=== PATIENT | male | born 1965 ===

== ENCOUNTER 2016-12-27 08:47 | Observation (INO) | payer OTHER ==
[2016-12-27 08:53] VITALS: BMI 34.4
[2016-12-27] MEDS ORDERED: diaZEpam 10 mg/2 ml Inj IVP ONE (09:17)
--- NOTE | 2016-12-27 09:21 | ED PDOC ---
Arrival/HPI - General Chief Complaint: Back Pain Time Seen by Provider: 12/27/16 09:03 Historian: Patient, Spouse - History of Present Illness Narrative History of Present Illness (Text): 12/27/16 09:04 A 51 year old male, whose past medical history includes "sciatica", presents to the emergency department complaining of acute lower back pain that worsened after lifting something at work yesterday. Pain persistent, mid back, worse with any movements. He has sensation of difficulty lifting his legs and states he feels as if his "legs give out". No falls or trauma reported. Patient states for the past month he has had some weakness to the bilateral hands with pain. He also feels he has had increased neck pain over the past week after having "chronic" neck pain for several months. No fever, no trauma. No incontinence of urine or stool. Reports "spasms" to his upper legs at time. PMD: None 12/27/16 15:36 Time/Duration: Other (month) Symptom Onset: Sudden Symptom Course: Unchanged Quality: Other Activities at Onset: Significant Context: Home Past Medical History - Provider Review Nursing Documentation Reviewed: Yes - Infectious Disease Hx of Infectious Diseases: None - Tetanus Immunization Tetanus Immunization: Unknown - Past Medical History Past Medical History: No Previous - Cardiac Hx Cardiac Disorders: No Other/Comment: NO MED HX - Pulmonary Hx Respiratory Disorders: Yes Hx Pneumonia: Yes - Neurological Hx Neurological Disorder: No - HEENT Hx HEENT Disorder: No - Renal Hx Renal Disorder: No - Endocrine/Metabolic Hx Endocrine Disorders: No - Hematological/Oncological Hx Blood Disorders: No - Integumentary Hx Dermatological Disorder: No - Musculoskeletal/Rheumatological Hx Musculoskeletal Disorders: No - Gastrointestinal Hx Gastrointestinal Disorders: No - Genitourinary/Gynecological Hx Genitourinary Disorders: No - Psychiatric Hx Psychophysiologic Disorder: No Hx Substance Use: No - Past Surgical History Past Surgical History: No Previous - Suicidal Assessment Feels Threatened In Home Enviroment: No Family/Social History - Physician Review Nursing Documentation Reviewed: Yes Family/Social History: Unknown Family HX Smoking Status: Current Some Days Smoker Hx Alcohol Use: Yes Hx Substance Use: No Hx Substance Use Treatment: No Allergies/Home Meds Allergies/Adverse Reactions: Allergies No Known Allergies Allergy (Verified 08/23/13 14:40) Review of Systems - Review of Systems Constitutional: Fatigue. absent: Fevers Eyes: absent: Vision Changes, Eye Pain ENT: absent: Hearing Changes, Sore Throat, Rhinorrhea Respiratory: absent: SOB Cardiovascular: Chest Pain. absent: Edema, Calf Pain, VASQUEZ Gastrointestinal: absent: Abdominal Pain, Stool Changes Genitourinary Male: absent: Dysuria, Frequency, Hematuria, Urinary Output Changes Musculoskeletal: Back Pain, Neck Pain Skin: absent: Rash Neurological: Headache, Focal Weakness, Gait Changes. absent: Dizziness Endocrine: absent: Polyuria Psychiatric: absent: Depression Physical Exam - Physical Exam Narrative Physical Exam (Text): Head: Atraumatic. Normocephalic. Eyes: PERRL. EOMI. Conjunctivae are not pale. ENT: Mucous membranes are moist and intact. Oropharynx is clear and symmetric. There is soft tissue swelling angle of right jaw, no pus or drainage. Neck: Midline tenderness, paraspinal tenderness with muscle spasm, able to flex and extend and rotate neck with minimal discomfort and no restrictions. Cardiovascular: Regular rate. Regular rhythm. No murmurs, rubs, or gallops. Distal pulses are 2+ and symmetric. Pulmonary/Chest: No evidence of respiratory distress. Clear to auscultation bilaterally. No wheezing, rales or rhonchi. No palpable chest wall pain. Abdominal: Soft and non-distended. There is no tenderness. No rebound, guarding, or rigidity. No organomegaly. Good bowel sounds. Back: No CVA tenderness. Midline lumbar pain with paraspina tenderness, no erythema or edema, pain with straight leg testing in both lower extremeties at 45 degrees, no rash. Extremities: No edema. No cyanosis. No clubbing. Full range of motion in all extremities. No calf tenderness. Some muscle spasm noted to upper thighs. Skin: Skin is warm and dry. No petechiae. No purpura. Neurological: Alert, awake, and oriented to person, place, time, and situation. Normal speech. No slurred speech. Weak grasp to both hands, but no pronator drift noted in upper extremities, has full strength with flexion and extension at elbow and wrist, he has reported weakness when attempting to lift both legs off of bed but he is able to do so, NO SADDLE ANESTHESIA, no incontinence, there is good strength with plantar and dorsiflexion in both ankles, as well as flexion and extension at knee, reflexes symmetric and intact Psychiatric: Good eye contact. Normal interaction, affect, and behavior. Vital Signs Reviewed: Yes Vital Signs Temp Pulse Resp BP Pulse Ox 12/27/16 13:30 65 18 138/69 99 12/27/16 12:00 64 17 142/70 99 12/27/16 11:01 64 18 144/68 96 12/27/16 08:47 98.4 F 61 18 146/73 96 Temperature: Afebrile Blood Pressure: Normal Pulse: Regular Respiratory Rate: Normal Appearance: Positive for: Non-Toxic, Uncomfortable Pain Distress: Severe Mental Status: Positive for: Alert and Oriented X 3 Medical Decision Making ED Course and Treatment: 12/27/16 09:04 Impression/Plan: A 51 year old male with midline cervical and lumbar pain. Based on history and physical examination I suspect patient has multiple herniated disc in the cervical and lumbar region. Will order a MRI of the cervical and lumbar region given sensation of weakness and "legs giving out". On initial exam there is no saddle anesthesia, not hyperreflexive, no incontinence reported. He has difficulty lifting legs up off stretcher although difficulty to assess whether this is truly from motor deficits or from pain. Will give patient toradol and valium for the discomfort, reassess paitent. Differential Diagnosis include but are not limited to: herniated disc, spinal cord injury, radiculopathy Prior Visits: Notes and results from previous visits were reviewed. The patient last presented to the emergency department on 10/29/15 for evaluation of a laceration to the left second finger. Patient will be placed in ED observation for serial neuro exams and pain management, obtain MRI. Treatment plan reviewed with patient and who assists with translation. Risks/side effects of medication reviewed with patient. - Lab Interpretations Lab Results: 12/27/16 10:10 12/27/16 10:10 Lab Results 12/27/16 10:14: Urine Color Yellow, Urine Appearance Clear, Urine pH 6.0, Ur Specific [place] >= 1.030, Urine Protein Trace H, Urine Glucose (UA) Negative, Urine Ketones Negative, Urine Blood Negative, Urine Nitrate Negative, Urine Bilirubin Negative, Urine Urobilinogen 1.0 H, Ur Leukocyte Esterase Negative, Urine RBC 0 - 2, Urine WBC 0 - 2, Ur Epithelial Cells 0 - 2, Urine Bacteria Few 12/27/16 10:10: PT 10.5, INR 0.97, APTT 25.2 12/27/16 10:10: Sodium 140, Potassium 3.9, Chloride 106, Carbon Dioxide 24, Anion Gap 14, BUN 25 H, Creatinine 0.9, Est GFR ( Amer) > 60, Est GFR ( Non-Af Amer) > 60, Random Glucose 91, Calcium 9.3, Total Bilirubin 0.8, AST 27, ALT 48, Alkaline Phosphatase 44, Lactate Dehydrogenase 451, Total Creatine Kinase 385 H, CK-MB (CK-2) 0.9, CK-MB (CK-2) % Cancelled, Troponin I < 0.01, Total Protein 7.0, Albumin 4.2, Globulin 2.7, Albumin/Globulin Ratio 1.6 12/27/16 10:10: WBC 6.3, RBC 5.15, Hgb 15.5, Hct 44.6, MCV 86.6, MCH 30.1, MCHC 34.8, RDW 13.2, Plt Count 194, MPV 10.2, Gran % 45.1 L, Lymph % (Auto) 41.6 H, [place] % (Auto) 8.0 H, Eos % (Auto) 4.5, Baso % (Auto) 0.8, Gran # 2.82, Lymph # 2.6, [place] # 0.5, Eos # 0.3, Baso # 0.05 I have reviewed the lab results: Yes - RAD Interpretation Radiology Orders: 12/27/16 09:17 CHEST PORTABLE [RAD] Stat 12/27/16 09:18 SPINAL CANAL CERVICAL W/O CONT [MRI] Stat SPINAL CANAL LUMBAR W/O CONT [MRI] Stat - Medication Orders Current Medication Orders: Discontinued Medications Dexamethasone (Decadron Inj) 8 mg IVP STAT STA Stop: 12/27/16 09:27 Last Admin: 12/27/16 09:45 Dose: 8 mg Diazepam (Valium) 2.5 mg IVP ONCE ONE PRN Reason: Protocol Stop: 12/27/16 09:18 Last Admin: 12/27/16 09:33 Dose: 2.5 mg Ketorolac Tromethamine (Toradol) 30 mg IVP ONCE ONE Stop: 12/27/16 09:18 Last Admin: 12/27/16 09:33 Dose: 30 mg Morphine Sulfate (Morphine) 4 mg IVP STAT STA Stop: 12/27/16 11:59 Last Admin: 12/27/16 12:06 Dose: 4 mg ED OBSERVATION Date of observation admission: 12/27/16 Time of observation admission: 09:05 - Observation admission statement Patient is being placed in observation because:: intractable back pain - Goals of Observation Goals of observation are:: pain management, series of neurological examination and obtain MRI - Progress Note Progress Note: 12/27/16 10:28 Chest X-ray: Creator : Remington Schmidt MD COMPARISON: 02/02/2014. FINDINGS: LUNGS: No active pulmonary disease. PLEURA: No significant pleural effusion identified, no pneumothorax apparent. CARDIOVASCULAR: Normal. OSSEOUS STRUCTURES: No significant abnormalities. VISUALIZED UPPER ABDOMEN: Normal. OTHER FINDINGS: None. IMPRESSION: No active disease. No significant interval change compared to the prior examination(s). 12/27/16 11:30 On reevaluation, the patient notes some improvement in discomfort with medication but still in severe pain. 12/27/16 13:15 Cervical Spine: Creator : Rich Santiago MD COMPARISON: None FINDINGS: There is preservation cervical doses. Two bodies appear intact without acute fracture. There is multilevel disc desiccation and disc bulging with a right paracentral disc herniation at C6-7 with encroachment upon the right ventral margin the cord. No significant foraminal stenosis or spinal stenosis is observed. There is no abnormal cord signal. No gross prevertebral or paraspinal soft tissue abnormality is observed. IMPRESSION: Right paracentral disc herniation at C6-7 with encroachment upon the right ventral margin the cord. 12/27/16 13:25 Lumbar Spine: Creator : Rich Santiago MD COMPARISON: None available. FINDINGS: Normal lumbar lordosis. Vertebral body heights are preserved. Marrow signal unremarkable. Conus medullaris unremarkable at the level of T12/L1. Paraspinal soft tissues are unremarkable. T12-L1: No disc herniation, spinal canal stenosis or neural foraminal narrowing. L1-2: No disc herniation, spinal canal stenosis or neural foraminal narrowing. L2-3: No disc herniation, spinal canal stenosis or neural foraminal narrowing. L3-4: No disc herniation, spinal canal stenosis or neural foraminal narrowing. L4-5: Disc bulge with thecal sac indentation. L5-S1: Grade 1 anterolisthesis with bilateral spondylolysis and bilateral inferior foraminal encroachment. OTHER FINDINGS: None. IMPRESSION: L4-5: Disc bulge with thecal sac indentation. L5-S1: Grade 1 anterolisthesis with bilateral spondylolysis and bilateral inferior foraminal encroachment. 12/27/16 14:16 MRI findings reviewed with patient and . He is still in severe pain however no motor or sensory deficits noted. Persistent pain despite multiple boluses of iv pain medication. Plan to admit for intractable back pain for observation, neurology consultation. - Scribe Statement The provider has reviewed the documentation as recorded by the Scribe Maurice Esteban Provider Scribe Attestation: All medical record entries made by the Scribe were at my direction and personally dictated by me. I have reviewed the chart and agree that the record accurately reflects my personal performance of the history, physical exam, medical decision making, and the department course for this patient. I have also personally directed, reviewed, and agree with the discharge instructions and disposition. Disposition/Present on Arrival - Present on Arrival Any Indicators Present on Arrival: No History of DVT/PE: No History of Uncontrolled Diabetes: No Urinary Catheter: No History of Decub. Ulcer: No History Surgical Site Infection Following: None - Disposition Have Diagnosis and Disposition been Completed?: Yes Diagnosis: Intractable back pain, Cervical disc herniation, Lumbar disc herniation Disposition: HOSPITALIZED Disposition Time: 09:05 Patient Plan: Admission, Observation Patient Problems: Current Active Problems Problem Status Onset Cervical disc herniation Acute Intractable back pain Acute Lumbar disc herniation Acute Condition: FAIR
[2016-12-27] MEDS ORDERED: Dexamethasone 4 mg/1 ml IVP STA (09:26)
[2016-12-27 10:11] LABS: ADD MANUAL DIFF? NO
[2016-12-27 10:20] LABS: URINE BILIRUBIN NEGATIVE (NEGATIVE); URINE BLOOD NEGATIVE (NEGATIVE); URINE GLUCOSE (UA) NEGATIVE (NEGATIVE); URINE KETONE NEGATIVE (NEGATIVE); URINE LEUKOCYTE ESTERASE NEGATIVE Leu/uL (NEGATIVE); URINE PROTEIN TRACE mg/dL (<30 mg/dL)
[2016-12-27 10:20] LABS: BASO # 0.05 K/mm3 (0.0-2.0); BASO % 0.8 % (0.0-3.0); EOS # 0.3 (0.0-0.7); EOS % 4.5 % (1.5-5.0); GRAN # 2.82 (1.4-6.5); GRAN % 45.1 % (50.0-68.0); HEMATOCRIT 44.6 % (42.0-52.0); LYMPH # 2.6 (1.2-3.4); LYMPH % 41.6 % (22.0-35.0); MEAN CELL VOLUME 86.6 fL (80.0-105.0); MEAN CORPUSCULAR HEMOGLOBIN 30.1 pg (25.0-35.0); MEAN CORPUSCULAR HGB CONC 34.8 g/dl (31.0-37.0); MEAN PLATELET VOLUME 10.2 fl (7.0-11.0); MONO # 0.5 (0.1-0.6); PLATELET COUNT 194 10^3/uL (120.0-450.0); RED CELL DISTRIBUTION WIDTH 13.2 % (11.5-14.5); WHITE BLOOD COUNT 6.3 10^3/ul (4.5-11.0)
[2016-12-27 10:22] LABS: URINE APPEARANCE CLEAR (CLEAR); URINE COLOR YELLOW (YELLOW)
--- NOTE | 2016-12-27 10:27 | RAD ---
HISTORY: chest pain COMPARISON: 02/02/2014. FINDINGS: LUNGS: No active pulmonary disease. PLEURA: No significant pleural effusion identified, no pneumothorax apparent. CARDIOVASCULAR: Normal. OSSEOUS STRUCTURES: No significant abnormalities. VISUALIZED UPPER ABDOMEN: Normal. OTHER FINDINGS: None. IMPRESSION: No active disease. No significant interval change compared to the prior examination(s).
[2016-12-27 10:28] LABS: ALB/GLOB RATIO 1.6 (1.1-1.8); ALKALINE PHOSPHATASE 44 U/L (38-133); ALT/SGPT 48 U/L (7-56); AST/SGOT 27 U/L (15-59); BILIRUBIN,TOTAL 0.8 mg/dL (0.2-1.3); BLOOD UREA NITROGEN 25 mg/dL (7-21); CALCIUM 9.3 mg/dL (8.4-10.5); CARBON DIOXIDE 24 mmol/L (21-33); CHLORIDE 106 mmol/L (98-107); GFR AFRICAN-AMERICAN > 60; GLUCOSE,RANDOM 91 mg/dL (70-110); POTASSIUM 3.9 mmol/L (3.6-5.0); SODIUM 140 mmol/L (132-148)
[2016-12-27 10:30] LABS: INR 0.97 (0.93-1.08); PARTIAL THROMBOPLASTIN TIME 25.2 Seconds (23.7-30.8)
[2016-12-27 10:40] LABS: TROPONIN I < 0.01 ng/mL
[2016-12-27 10:52] LABS: URINE BACTERIA FEW (NEG); URINE EPITHELIAL CELLS 0 - 2 /hpf (0-5); URINE RBC 0 - 2 /hpf (0-2); URINE WBC 0 - 2 /hpf (0-6)
[2016-12-27] MEDS ORDERED: Morphine 2 mg/ml ISec IVP STA (11:58)
--- NOTE | 2016-12-27 13:13 | MRI ---
PROCEDURE: HISTORY: neck pain, arm weakness COMPARISON: None TECHNIQUE: Noncontrast FINDINGS: There is preservation cervical doses. Two bodies appear intact without acute fracture. There is multilevel disc desiccation and disc bulging with a right paracentral disc herniation at C6-7 with encroachment upon the right ventral margin the cord. No significant foraminal stenosis or spinal stenosis is observed. There is no abnormal cord signal. No gross prevertebral or paraspinal soft tissue abnormality is observed. IMPRESSION: Right paracentral disc herniation at C6-7 with encroachment upon the right ventral margin the cord.
--- NOTE | 2016-12-27 13:26 | MRI ---
PROCEDURE: MR LUMBAR SPINE WITHOUT CONTRAST HISTORY: low back pain with leg weakness COMPARISON: None available. TECHNIQUE: Multiecho multiplanar sequences were performed through the lumbar spine without the use of intravenous contrast. FINDINGS: Normal lumbar lordosis. Vertebral body heights are preserved. Marrow signal unremarkable. Conus medullaris unremarkable at the level of T12/L1 Paraspinal soft tissues are unremarkable. T12-L1: No disc herniation, spinal canal stenosis or neural foraminal narrowing. L1-2: No disc herniation, spinal canal stenosis or neural foraminal narrowing. L2-3: No disc herniation, spinal canal stenosis or neural foraminal narrowing. L3-4: No disc herniation, spinal canal stenosis or neural foraminal narrowing. L4-5: Disc bulge with thecal sac indentation. L5-S1: Grade 1 anterolisthesis with bilateral spondylolysis and bilateral inferior foraminal encroachment. OTHER FINDINGS: None. IMPRESSION: L4-5: Disc bulge with thecal sac indentation. L5-S1: Grade 1 anterolisthesis with bilateral spondylolysis and bilateral inferior foraminal encroachment.
--- NOTE | 2016-12-27 18:26 | CP.PCM.HP ---
<Denys Crowell - Last Filed: 12/27/16 18:11> History of Present Illness - History of Present Illness History of Present Illness: HPI: Patient is a 51yo male with past medical history of sciatica that [place] [facility] [place]o low back pain. 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 He reported that he immediately had an acute decrease in the muscle strength of both of his legs. He felt as though his legs were giving out. He reported his low back pain has been persistent despite taking ibuprofen and exacerbates with movement. He reported that he was able to drive home but after no improvement with rest, he decided to come in for evaluation. Patient also reported cervical pain that has been present for the past 4 weeks. He stated that when he was lifting the heavy object he felt tingling in bilateral upper extremities. He denied saddle anesthesia, bowel/bladder incontinence, trauma, chest pain, palpitations, SOB, abdominal pain, nausea, vomiting, fever, chills, cough. 12point ROS as per HPI above, otherwise negative PMHx: Sciatica PSHx: denies Allergies: denies Medications: denies Family Hx: Father: CAD, Sciatica, [place], HTN, HCL; Mother: DM2, HTN Social Hx: Denies alcohol and illicit drug use; lives with his PMD: none Present on Admission - Present on Admission Any Indicators Present on Admission: No Past Patient History - Infectious Disease Hx of Infectious Diseases: None - Tetanus Immunizations Tetanus Immunization: Unknown - Past Social History Smoking Status: Current Some Days Smoker - CARDIAC Hx Cardiac Disorders: No Other/Comment: NO MED HX - PULMONARY Hx Respiratory Disorders: Yes Hx Pneumonia: Yes - NEUROLOGICAL Hx Neurological Disorder: No - HEENT Hx HEENT Problems: No - RENAL Hx Chronic Kidney Disease: No - ENDOCRINE/METABOLIC Hx Endocrine Disorders: No - HEMATOLOGICAL/ONCOLOGICAL Hx Blood Disorders: No - INTEGUMENTARY Hx Dermatological Problems: No - MUSCULOSKELETAL/RHEUMATOLOGICAL Hx Musculoskeletal Disorders: No - GASTROINTESTINAL Hx Gastrointestinal Disorders: No - GENITOURINARY/GYNECOLOGICAL Hx Genitourinary Disorders: No - PSYCHIATRIC Hx Psychophysiologic Disorder: No Hx Substance Use: No - SURGICAL HISTORY Hx Surgeries: No Meds Allergies/Adverse Reactions: Allergies Allergy/AdvReac Type Severity Reaction Status Date / Time No Known Allergies Allergy Verified 12/27/16 19:23 Physical Exam - Head Exam Head Exam: ATRAUMATIC, NORMAL INSPECTION, NORMOCEPHALIC - Eye Exam Eye Exam: EOMI, PERRL - ENT Exam ENT Exam: Mucous Membranes Moist - Respiratory Exam Respiratory Exam: Clear to Auscultation Bilateral. absent: Rales, Rhonchi, Wheezes - Cardiovascular Exam Cardiovascular Exam: RRR, +S1, +S2. absent: Gallop, Rubs - GI/Abdominal Exam GI & Abdominal Exam: Soft. absent: Distended, Firm, Guarding, Rebound, Tenderness - Extremities Exam Additional comments: muscle strength 3/5 in bilateral lower extremities muscle strength 3/5 in bilateral upper extremities - Back Exam Additional comments: tenderness to palptation at C6-C7 tenderness to palptation at ~L4-L5 and L5-S1 - Neurological Exam Neurological exam: Alert, CN II-XII Intact, Oriented x3 Additional comments: sensation intact throughout EOMI, PERRLA CN2-12 intact - Skin Skin Exam: Dry, Intact, Normal Color, Warm Results - Vital Signs Recent Vital Signs: Last Vital Signs Temp 98.4 F 12/27/16 08:47 Pulse 66 12/27/16 15:36 Resp 18 12/27/16 15:36 BP 135/65 12/27/16 15:36 Pulse Ox 99 12/27/16 15:36 - Labs Result Diagrams: 12/27/16 10:10 12/27/16 10:10 Assessment & Plan - Assessment and Plan (Free Text) Plan: 51yo male with history of sciatica presents c/o acute low back pain for one day prior to presentation -Cervical MRI revealed right paracentral disc herniation at C6-C7 with encroachment upon the right ventral margin of the cord -Lumbar MRI revealed disk bulge with thecal sac indentation at L4-L5, grade 1 anterolisthesis with bilateral spondylolysis and bilateral inferior foraminal encroachment at L5-S1 -Thoracic MRI ordered -Gapanetin 600mg qHS, decadron 4mg q6h per neurology recommendations -Neurology consulted - Dr. Laureano; Discussed case and orders placed per recommendations provided -Neurosurgery consulted - Dr. Steele -Neurochecks q1h for 4 hours, followed by q4h -Patient placed on remote telemetry for possibility of tachycardia secondary to decadron administration per neurology recommendations Patient seen and case discussed in conjuction with attending, Dr. Goodwin - Date & Time Date: 12/27/16 Time: 18:29 <Francine Goodwin - Last Filed: 12/27/16 19:55> Results - Vital Signs Recent Vital Signs: Last Vital Signs Temp 98.4 F 12/27/16 08:47 Pulse 66 12/27/16 15:36 Resp 18 12/27/16 15:36 BP 135/65 12/27/16 15:36 Pulse Ox 99 12/27/16 15:36 - Labs Result Diagrams: 12/27/16 10:10 12/27/16 10:10 Attending/Attestation - Attestation I have personally seen and examined this patient.: Yes I have fully participated in the care of the patient.: Yes I have reviewed all pertinent clinical information: Yes Notes (Text): 12/27/16 19:49 Pt has low back pain and spasm of muscles of the lower extremities,is unable to stand or walk normally. Pt to be considered for PT after Neurosurgical evaluation.
[2016-12-27] MEDS: Morphine 2 mg/ml ISec IVP PRN (19:21)
[2016-12-27] MEDS: Dexamethasone 4 mg/1 ml IVP SCH (19:22)
[2016-12-27] MEDS ORDERED: Pneumococcal 23-Valent Vaccine IM ONE (21:54)
[2016-12-28] MEDS: Dexamethasone 4 mg/1 ml IVP SCH ×5 (00:47→22:15)
[2016-12-28 07:47] LABS: ADD MANUAL DIFF? NO
[2016-12-28 07:55] LABS: GRAN # 6.72 (1.4-6.5); GRAN % 82.2 % (50.0-68.0); HEMATOCRIT 41.9 % (42.0-52.0); LYMPH # 1.3 (1.2-3.4); LYMPH % 15.5 % (22.0-35.0); MEAN CELL VOLUME 85.7 fL (80.0-105.0); MEAN CORPUSCULAR HEMOGLOBIN 29.9 pg (25.0-35.0); MEAN CORPUSCULAR HGB CONC 34.8 g/dl (31.0-37.0); MONO # 0.2 (0.1-0.6); MONO % 2.3 % (1.0-6.0); PLATELET COUNT 201 10^3/uL (120.0-450.0); WHITE BLOOD COUNT 8.2 10^3/ul (4.5-11.0)
[2016-12-28 08:09] LABS: ALB/GLOB RATIO 1.7 (1.1-1.8); ALKALINE PHOSPHATASE 39 U/L (38-133); ALT/SGPT 45 U/L (7-56); AST/SGOT 20 U/L (15-59); BILIRUBIN,TOTAL 0.5 mg/dL (0.2-1.3); BLOOD UREA NITROGEN 20 mg/dL (7-21); CARBON DIOXIDE 20 mmol/L (21-33); CHLORIDE 105 mmol/L (95-110); GFR AFRICAN-AMERICAN > 60; GLUCOSE,RANDOM 130 mg/dL (70-110); POTASSIUM 4.8 mmol/L (3.6-5.0); SODIUM 135 mmol/L (132-148); TOTAL PROTEIN 6.6 g/dL (5.8-8.3)
[2016-12-28] MEDS: Morphine 2 mg/ml ISec IVP PRN (09:46)
--- NOTE | 2016-12-28 09:54 | CARD ---
APPROVED REPORT EKG Measurement Heart [id number] <Conclusion> Sinus bradycardia No change except slower rate
--- NOTE | 2016-12-28 10:44 | CP.PCM.PN ---
Subjective - Date & Time of Evaluation Date of Evaluation: 12/28/16 Time of Evaluation: 10:42 - Subjective Subjective: full consult dictated L5/S1 spondylolisthesis - Pt considering conservative vs operative Tx will order CT Objective - Vital Signs/Intake and Output Vital Signs (last 24 hours): Temp Pulse Resp BP Pulse Ox 98.4 F 56 L 18 135/65 96 12/27/16 21:32 12/28/16 10:00 12/27/16 21:32 12/27/16 21:32 12/27/16 18:00 Intake and Output: 12/28/16 12/28/16 06:59 18:59 Intake Total 420 Balance 420 - Medications Medications: Current Medications Dexamethasone (Decadron Inj) 4 mg IVP Q6H JOHNATHON Last Admin: 12/28/16 05:43 Dose: 4 mg Gabapentin (Neurontin) 600 mg PO HS JOHNATHON PRN Reason: Protocol Last Admin: 12/27/16 23:02 Dose: 600 mg Morphine Sulfate (Morphine) 2 mg IVP Q6H PRN PRN Reason: Pain, severe (8-10) Last Admin: 12/28/16 09:46 Dose: 2 mg - Labs Labs: 12/28/16 07:11 12/28/16 07:11 PT 10.5 Seconds (9.9-11.8) 12/27/16 10:10 INR 0.97 (0.93-1.08) 12/27/16 10:10 APTT 25.2 Seconds (23.7-30.8) 12/27/16 10:10
[2016-12-28] MEDS ORDERED: HYDROmorphone 0.5 mg/0.5 ml ISec IVP PRN (11:38)
--- NOTE | 2016-12-28 11:42 | CP.PCM.PN ---
<Sander Christiansen - Last Filed: 12/28/16 11:43> Subjective - Date & Time of Evaluation Date of Evaluation: 12/28/16 Time of Evaluation: 11:40 - Subjective Subjective: Medicine progress note. Attending: Dr. Guillen Pt seen and examined at bedside. No acute distress. Neurosurgery evaluation pending. No fevers, chills. Pt still complaining of weakness in arms, but sensation intact. Will add ESR, ELIU. Objective - Vital Signs/Intake and Output Vital Signs (last 24 hours): Temp Pulse Resp BP Pulse Ox 98.4 F 56 L 17 109/67 92 L 12/28/16 06:00 12/28/16 10:00 12/28/16 06:00 12/28/16 06:00 12/28/16 06:00 Intake and Output: 12/28/16 12/28/16 06:59 18:59 Intake Total 420 Balance 420 - Medications Medications: Current Medications Dexamethasone (Decadron Inj) 4 mg IVP Q6H JOHNATHON Last Admin: 12/28/16 11:07 Dose: 4 mg Gabapentin (Neurontin) 600 mg PO HS JOHNATHON PRN Reason: Protocol Last Admin: 12/27/16 23:02 Dose: 600 mg Hydromorphone HCl (Dilaudid) 1 mg IVP Q4H PRN PRN Reason: Pain, severe (8-10) Lidocaine (Lidoderm) 1 ea TD DAILY JOHNATHON - Labs Labs: 12/28/16 07:11 12/28/16 07:11 PT 10.5 Seconds (9.9-11.8) 12/27/16 10:10 INR 0.97 (0.93-1.08) 12/27/16 10:10 APTT 25.2 Seconds (23.7-30.8) 12/27/16 10:10 - Constitutional Appears: Non-toxic, No Acute Distress - Head Exam Head Exam: ATRAUMATIC, NORMAL INSPECTION, NORMOCEPHALIC - Eye Exam Eye Exam: EOMI - ENT Exam ENT Exam: Mucous Membranes Moist - Neck Exam Neck Exam: Full ROM, Normal Inspection - Respiratory Exam Respiratory Exam: NORMAL BREATHING PATTERN. absent: Respiratory Distress - Cardiovascular Exam Cardiovascular Exam: +S1, +S2 - GI/Abdominal Exam GI & Abdominal Exam: Soft, Normal Bowel Sounds. absent: Tenderness - Extremities Exam Extremities Exam: Normal Inspection - Back Exam Back Exam: NORMAL INSPECTION - Neurological Exam Neurological Exam: Alert, Awake, Oriented x3 Additional comments: Sensation to pain and light touch intact. Able to follow complex commands. AO x 3. - Psychiatric Exam Psychiatric exam: Normal Affect, Normal Mood - Skin Skin Exam: Dry, Intact, Normal Color, Warm Assessment and Plan - Assessment and Plan (Free Text) Assessment: This is a 51 yo male with history of sciatica presenting with cc acute low back pain for one day prior to presentation 1. Low back pain -Cervical MRI revealed right paracentral disc herniation at C6-C7 with encroachment upon the right ventral margin of the cord -Lumbar MRI revealed disk bulge with thecal sac indentation at L4-L5, grade 1 anterolisthesis with bilateral spondylolysis and bilateral inferior foraminal encroachment at L5-S1 -Thoracic MRI ordered, results pending -Gapanetin 600mg qHS, decadron 4mg q6h per neurology recommendations -Neurology consulted - Dr. Laureano -Neurosurgery consulted - Dr. Steele, workup in progress. -Neurochecks q1h for 4 hours, followed by q4h -Patient placed on remote telemetry for possibility of tachycardia secondary to decadron administration per neurology recommendations -will add dilaudid for pain -will f/u esr, eliu -will add lidocaine patch to lumbar spine 2.GI/DVT ppx -protonix daily -SCDs discussed with Dr. Guillen <Sahra Guillen - Last Filed: 12/28/16 15:57> Objective - Vital Signs/Intake and Output Vital Signs (last 24 hours): Temp Pulse Resp BP Pulse Ox 98.4 F 56 L 17 109/67 92 L 12/28/16 06:00 12/28/16 10:00 12/28/16 06:00 12/28/16 06:00 12/28/16 06:00 Intake and Output: 12/28/16 12/28/16 06:59 18:59 Intake Total 420 360 Balance 420 360 - Medications Medications: Current Medications Dexamethasone (Decadron Inj) 4 mg IVP Q6H JOHNATHON Last Admin: 12/28/16 11:07 Dose: 4 mg Gabapentin (Neurontin) 600 mg PO HS JOHNATHON PRN Reason: Protocol Last Admin: 12/27/16 23:02 Dose: 600 mg Hydromorphone HCl (Dilaudid) 1 mg IVP Q4H PRN PRN Reason: Pain, severe (8-10) Lidocaine (Lidoderm) 1 ea TD DAILY JOHNATHON Last Admin: 12/28/16 12:47 Dose: 1 ea Pantoprazole Sodium (Protonix Inj) 40 mg IVP DAILY [facility] Last Admin: 12/28/16 12:47 Dose: 40 mg - Labs Labs: 12/28/16 07:11 12/28/16 07:11 PT 10.5 Seconds (9.9-11.8) 12/27/16 10:10 INR 0.97 (0.93-1.08) 12/27/16 10:10 APTT 25.2 Seconds (23.7-30.8) 12/27/16 10:10 Attending/Attestation - Attestation I have personally seen and examined this patient.: Yes I have fully participated in the care of the patient.: Yes I have reviewed all pertinent clinical information, including history, physical exam and plan: Yes Notes (Text): 12/28/16 15:54 Patient seen and examined at bedside. Vitals, notes and labs reviewed. Imaging results noted. patients pain is slightly better with analgesic support and steroids. Neuro-surgery consult appreciated and patient to decide between two therapeutic options. We will repeat CT Lumbar spine today. Neurology team consulted as well. Reviewed and agree with the plan outlined above.
[2016-12-28] MEDS: Lidocaine 5% Patch TD SCH (12:47)
--- NOTE | 2016-12-28 14:55 | CT ---
PROCEDURE: CT Lumbar Spine without contrast HISTORY: spondylolisthesis COMPARISON: None. TECHNIQUE: Axial computed tomography images were obtained of the lumbar spine without the use of intravenous contrast. Coronal and sagittal reformatted images were created and reviewed. Radiation dose: Total exam DLP = 0 swallow L1 I spoke to the technologist size and fine detailed the if you wanted with contrast [place] no problem with that there is no contraindication to lower select distal mGy-cm. This CT exam was performed using one or more of the following dose reduction techniques: Automated exposure control, adjustment of the mA and/or kV according to patient size, and/or use of iterative reconstruction technique. FINDINGS: VERTEBRAE: Unremarkable. No fracture. Normal alignment. DISCS/SPINAL CANAL/NEURAL FORAMINA: L1-2: Unremarkable. L2-3: Unremarkable. L3-4: Unremarkable. L4-5: Unremarkable. L5-S1: Grade 1 anterolisthesis with associated pars defects. PARASPINAL SOFT TISSUES: Unremarkable. OTHER FINDINGS: Diverticulosis without an acute inflammatory component or other associated pathologic process. IMPRESSION: Grade 1 anterolisthesis with associated spondylolysis L5-S1. Otherwise no significant/ acute findings.
--- NOTE | 2016-12-28 15:27 | MRI ---
PROCEDURE: MR THORACIC SPINE WITHOUT CONTRAST HISTORY: r/o compression COMPARISON: None available. TECHNIQUE: Multiecho multiplanar sequences were performed through the thoracic spine without the use of intravenous contrast. FINDINGS: ALIGNMENT: Normal thoracic spinal alignment. Normal thoracic kyphosis. VERTEBRA: Vertebral body height are preserved. MARROW: Marrow signal unremarkable. PARASPINAL SOFT TISSUES: Unremarkable. CORD: Unremarkable thoracic cord. No volume loss, signal abnormality or syrinx. DISCS: T5-6 right paracentral disc protrusion with mild central canal stenosis and encroachment upon the right ventral margin of the cord. T6-7 disc extrusion extending superiorly 1/3 of the vertebral body height resulting in mild central canal stenosis and mild flattening of the ventral margin of the cord. OTHER FINDINGS: Limited by absence of cervical spinal localizing sequence limiting anchored numbering of the thoracic bodies. Following thoracic levels are approximate.. IMPRESSION: Limited by absence of cervical spinal localizing sequence limiting anchored numbering of the thoracic bodies. Following thoracic levels are approximate.. T5-6 right paracentral disc protrusion with mild central canal stenosis and encroachment upon the right ventral margin of the cord. T6-7 disc extrusion extending superiorly 1/3 of the vertebral body height resulting in mild central canal stenosis and mild flattening of the ventral margin of the cord.
[2016-12-28] MEDS: HYDROmorphone 1 mg/ml ISec IVP PRN ×2 (17:37→22:16)
--- NOTE | 2016-12-28 20:16 | CON ---
DATE: 12/28/2016 CHIEF COMPLAINT: Back pain and neck pain. 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 He has had difficulty lifting his legs and paresthesias i n the legs, had mid low back pain radiating down the left buttocks down to the foot with paresthesias and weakness. No recent falls or trauma to the ____. He also mentions that he has weak payroll consultant in hi s hands and has neck pain radiating down both arms with paresthesias. No bowel or bladder incontinen ce. He underwent MRIs of the thoracic spine, which showed T5-T6 right paracentral disk protrusion, m ild central canal stenosis encroachment upon the right ventral margin of the cord and T6-T7 disk extr usion extending superiorly to 1/3 of vertebral body height, resulting in mild central canal stenosis and mild flattening of the ventral cord. He had MRI of the lumbosacral spine, which showed grade I a nterolisthesis with bilateral spondylosis and bilateral inferior foraminal encroachment at L4-L5 disk bulge with thecal sac indentation. MRI cervical spine showed a right paracentral disk herniation at C6-C7 with encroachment upon the right ventral margin of the cord, but no abnormal cord signal. Sta rted on Decadron 4 mg IV q. 6 for neuropathic pain and gabapentin 600 mg p.o. at bedtime for neuropat hic pain, which has helped. Neurosurgery evaluation has been done, awaiting their assessment for pos sible surgical intervention. Currently, the patient has weak payroll consultant on hands and decreased reflexes o n the brachioradialis and the biceps as well as the triceps bilaterally and has decreased reflexes at both bilateral patellars, has pain when raising both legs above 15 degrees. PAST MEDICAL HISTORY: History of low back pain. SOCIAL HISTORY: No illicit drug use, smoking, or ETOH abuse. FAMILY HISTORY: Noncontributory. ALLERGIES: No known drug allergies. CURRENT MEDICATIONS: Reviewed via nurses reconciliation sheet. FAMILY HISTORY: Noncontributory. PHYSICAL EXAMINATION: VITAL SIGNS: Temperature 98.2, pulse rate 76, blood pressure 124/66, respiratory rate of 18, oxygen 95% on room air. GENERAL: The patient is sitting up in bed in no acute distress. HEENT: Atraumatic, normocephalic. PERRLA. Extraocular muscles intact. NECK: Supple, no JVD, no adenopathy noted. LUNGS: Clear to auscultation. No adventitious sounds. HEART: S1, S2, normal rate and rhythm. No murmurs, rubs, or gallops. ABDOMEN: Soft, nontender, nondistended. Bowel sounds present. EXTREMITIES: No clubbing, no cyanosis. Peripheral pulses 2+ felt bilaterally. NEUROLOGIC: The patient is alert, oriented to person, place, month and year. Speech is fluent, with out any errors. Cranial nerves II through XII are intact. MOTOR: Moves all extremities equally, but when moving the lower legs, he gets pain down his low back and has decreased hand payroll consultant of both hands. DTRs are 2+ throughout except for 1 at both brachioradi refugio, 1 at biceps and 1 at the pelvis. Toes are downgoing bilaterally. SENSORY: Decreased light touch and pinprick, proprioception, vibration. COORDINATION: Doknbe-yo-rtdg intact. GAIT: Deferred for now. LABORATORIES: Sodium is 135, potassium 4.8, chloride 105, carbon dioxide 20, BUN of 20, creatinine 0 .8. Random glucose 130. ASSESSMENT AND PLAN: This is a 51-year-old man with history of low back pain, who has worsening low back pain radiating down the left buttocks, down the left leg associated with paresthesias, aggravate d by prolonged positions and with any sudden movements. His legs also give out at times. He also co mplains of neck pain radiating down both arms with some paresthesias as well and decreased hand payroll consultant strength. His MRI of the lumbosacral spine showed grade I anterolisthesis with bilateral spondylosi s, bilateral foraminal ____ , L4-L5 disk bulge with thecal sac indentation. MRI of thoracic spine sh owed T5-T6 right paracentral disk protrusion with mild central canal stenosis, encroachment upon the right ventral margin of the cord and C6-C7 extrusion extending superiorly 1/3 of vertebral body heigh t and resulting in mild central canal stenosis and flattening of the ventral margin cord. MRI C-spin e showing a right paracentral disk herniation at C6 with C7 encroachment upon the right ventral clark n of the cord but no abnormal cord signal. Overall impression is that he has acute lumbosacral radic ulopathy from L4-S1, superimposed underlying cervical radiculopathy, especially on the right C6-C7. AT THIS TIME, RECOMMEND: 1. Neurosurgical evaluation for both lumbosacral ____ as well as cervical intervention. 2. Continue Decadron 4 mg IV q. 6 hours for anti-inflammatory effect. Can taper down to p.o. if nec essary by pharmacy's recommendations. 3. Continue gabapentin 600 mg p.o. at bedtime for neuropathic pain and could add 300 mg p.o. q.a.m. if needed. 4. Physical and occupational therapy. Will probably need also some subacute rehabilitation. At this time, continue with current present management. Thank you for this consult. Bryson Laureano MD cc: [id number] TT: 12/28/2016 20:15:04 Confirmation # [id number] Dictation # [id number] sherif
[2016-12-29] MEDS: Dexamethasone 4 mg/1 ml IVP SCH ×2 (05:12→11:31)
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
[2016-12-29 08:38] VITALS: RESP 20; O2SAT 99
[2016-12-29 08:57] LABS: ADD MANUAL DIFF? NO
[2016-12-29] MEDS: HYDROmorphone 1 mg/ml ISec IVP PRN ×2 (08:58→14:10)
[2016-12-29] MEDS: Lidocaine 5% Patch TD SCH (09:03)
[2016-12-29 09:04] LABS: GRAN # 8.86 (1.4-6.5); GRAN % 82.9 % (50.0-68.0); HEMATOCRIT 40.6 % (42.0-52.0); LYMPH # 1.4 (1.2-3.4); LYMPH % 13.2 % (22.0-35.0); MEAN CELL VOLUME 86.4 fL (80.0-105.0); MEAN CORPUSCULAR HEMOGLOBIN 29.4 pg (25.0-35.0); MONO # 0.4 (0.1-0.6); MONO % 3.9 % (1.0-6.0); PLATELET COUNT 189 10^3/uL (120.0-450.0); WHITE BLOOD COUNT 10.7 10^3/ul (4.5-11.0)
[2016-12-29 09:17] LABS: ALB/GLOB RATIO 1.6 (1.1-1.8); ALKALINE PHOSPHATASE 33 U/L (38-133); ALT/SGPT 43 U/L (7-56); AST/SGOT 16 U/L (15-59); BILIRUBIN,TOTAL 0.4 mg/dL (0.2-1.3); BLOOD UREA NITROGEN 23 mg/dL (7-21); CALCIUM 8.8 mg/dL (8.4-10.5); CARBON DIOXIDE 21 mmol/L (21-33); CHLORIDE 105 mmol/L (98-107); GFR AFRICAN-AMERICAN > 60; GLUCOSE,RANDOM 120 mg/dL (70-110); MAGNESIUM 2.1 mg/dL (1.7-2.2); PHOSPHOROUS 3.1 mg/dL (2.5-4.5); POTASSIUM 4.4 mmol/L (3.6-5.0); SODIUM 133 mmol/L (132-148); TOTAL PROTEIN 6.3 g/dL (5.8-8.3)
--- NOTE | 2016-12-29 10:53 | CP.PCM.PN ---
<Sander Christiansen - Last Filed: 12/29/16 10:54> Subjective - Date & Time of Evaluation Date of Evaluation: 12/29/16 Time of Evaluation: 10:50 - Subjective Subjective: Med progress note. Attending: Dr. Kirk Pt seen and examined at bedside. No acute distress. Pt needing PT eval. Able to move to go to bathroom. No fevers, chills, vomiting, diarrhea. Objective - Vital Signs/Intake and Output Vital Signs (last 24 hours): Temp Pulse Resp BP Pulse Ox 97.9 F 54 L 20 114/67 99 12/29/16 08:36 12/29/16 08:36 12/29/16 08:36 12/29/16 08:36 12/29/16 08:36 Intake and Output: 12/29/16 12/29/16 06:59 18:59 Intake Total 1140 Balance 1140 - Medications Medications: Current Medications Dexamethasone (Decadron Inj) 4 mg IVP Q6H JOHNATHON Last Admin: 12/29/16 05:12 Dose: 4 mg Gabapentin (Neurontin) 600 mg PO HS JOHNATHON PRN Reason: Protocol Last Admin: 12/28/16 22:16 Dose: 600 mg Hydromorphone HCl (Dilaudid) 1 mg IVP Q4H PRN PRN Reason: Pain, severe (8-10) Last Admin: 12/29/16 08:58 Dose: 1 mg Lidocaine (Lidoderm) 1 ea TD DAILY JOHNATHON Last Admin: 12/29/16 09:03 Dose: 1 ea Pantoprazole Sodium (Protonix Inj) 40 mg IVP DAILY JOHNATHON Last Admin: 12/29/16 09:03 Dose: 40 mg - Labs Labs: 12/29/16 08:20 12/29/16 08:20 PT 10.5 Seconds (9.9-11.8) 12/27/16 10:10 INR 0.97 (0.93-1.08) 12/27/16 10:10 APTT 25.2 Seconds (23.7-30.8) 12/27/16 10:10 - Constitutional Appears: Non-toxic, No Acute Distress - Head Exam Head Exam: ATRAUMATIC, NORMOCEPHALIC. absent: NORMAL INSPECTION Additional comments: Positive dermoid cyst - Eye Exam Eye Exam: EOMI - ENT Exam ENT Exam: Mucous Membranes Moist - Neck Exam Neck Exam: Full ROM, Normal Inspection - Respiratory Exam Respiratory Exam: NORMAL BREATHING PATTERN. absent: Respiratory Distress - Cardiovascular Exam Cardiovascular Exam: +S1, +S2 - GI/Abdominal Exam GI & Abdominal Exam: Soft, Normal Bowel Sounds. absent: Tenderness - Extremities Exam Extremities Exam: Normal Inspection - Back Exam Back Exam: paraspinal tenderness, tenderness - Neurological Exam Neurological Exam: Alert, Awake, Oriented x3 Additional comments: Sensation intact to pain and light touch - Skin Skin Exam: Dry, Intact, Normal Color, Warm Assessment and Plan - Assessment and Plan (Free Text) Assessment: This is a 51 yo male with history of sciatica presenting with cc acute low back pain for one day prior to presentation 1. Low back pain -Cervical MRI revealed right paracentral disc herniation at C6-C7 with encroachment upon the right ventral margin of the cord -Lumbar MRI revealed disk bulge with thecal sac indentation at L4-L5, grade 1 anterolisthesis with bilateral spondylolysis and bilateral inferior foraminal encroachment at L5-S1 -Thoracic MRI ordered, results pending -Gapanetin 600mg qHS, decadron 4mg q6h per neurology recommendations -Neurology consulted - Dr. Laureano -Neurosurgery consulted - Dr. Steele, workup in progress. -Neurochecks -Patient placed on remote telemetry for possibility of tachycardia secondary to decadron administration per neurology recommendations -will add dilaudid for pain -will f/u esr, eliu -will add lidocaine patch to lumbar spine 2.GI/DVT ppx -protonix daily -SCDs -will f/u with PT evaluation discussed with Dr. Kirk. <Bartolome Kirk - Last Filed: 12/30/16 16:31> Objective - Vital Signs/Intake and Output Vital Signs (last 24 hours): Temp Pulse Resp BP Pulse Ox 97.8 F 64 20 131/75 99 12/29/16 18:00 12/29/16 18:00 12/29/16 18:00 12/29/16 18:00 12/29/16 08:36 - Labs Labs: 12/29/16 08:20 12/29/16 08:20 PT 10.5 Seconds (9.9-11.8) 12/27/16 10:10 INR 0.97 (0.93-1.08) 12/27/16 10:10 APTT 25.2 Seconds (23.7-30.8) 12/27/16 10:10 Attending/Attestation - Attestation I have personally seen and examined this patient.: Yes I have fully participated in the care of the patient.: Yes I have reviewed all pertinent clinical information, including history, physical exam and plan: Yes Notes (Text): 12/30/16 16:28 Attending note; Patient seen and examined with resident. Patient is a 51-year-old male admitted with back pain. Patient with significant cervical and lumbar radiculopathy. Neurosurgery evaluation appreciated. Patient refused Surgery for now. Physical therapy evaluation appreciated. Neurology evaluation with Dr. Laureano appreciated. Patient will be discharged home with Neurontin, Medrol Dosepak, Motrin and Percocet. Patient will complete [facility] care paperwork. Patient [place] [facility] [place] [facility] Patient will follow-up with neurosurgery Dr. Thornton. Diagnosis; Lumbar radiculopathy/disc herniation facet arthropathy History of back injury Cervical radiculopathy
--- NOTE | 2016-12-29 10:56 | CP.PCM.PN ---
Subjective - Date & Time of Evaluation Date of Evaluation: 12/29/16 Time of Evaluation: 10:52 - Subjective Subjective: SPINE Reviewed CT scan. Signif bilat pars defects at L5. Pt would absolutely benefit from L5-S1 decompression/fixation/fusion, but due to his work and family issues states it is impossible for him to have surgery at this time. Therefore would consider d/c (pt states he can amb to bathroom on own now) and we will f/u in office as pt wishes. Need to taper steroids. Discussed with Social Service as well so they can see pt. Objective - Vital Signs/Intake and Output Vital Signs (last 24 hours): Temp Pulse Resp BP Pulse Ox 97.9 F 54 L 20 114/67 99 12/29/16 08:36 12/29/16 08:36 12/29/16 08:36 12/29/16 08:36 12/29/16 08:36 Intake and Output: 12/29/16 12/29/16 06:59 18:59 Intake Total 1140 Balance 1140 - Medications Medications: Current Medications Dexamethasone (Decadron Inj) 4 mg IVP Q6H JOHNATHON Last Admin: 12/29/16 05:12 Dose: 4 mg Gabapentin (Neurontin) 600 mg PO HS JOHNATHON PRN Reason: Protocol Last Admin: 12/28/16 22:16 Dose: 600 mg Hydromorphone HCl (Dilaudid) 1 mg IVP Q4H PRN PRN Reason: Pain, severe (8-10) Last Admin: 12/29/16 08:58 Dose: 1 mg Lidocaine (Lidoderm) 1 ea TD DAILY JOHNATHON Last Admin: 12/29/16 09:03 Dose: 1 ea Pantoprazole Sodium (Protonix Inj) 40 mg IVP DAILY JOHNATHON Last Admin: 12/29/16 09:03 Dose: 40 mg - Labs Labs: 12/29/16 08:20 12/29/16 08:20 PT 10.5 Seconds (9.9-11.8) 12/27/16 10:10 INR 0.97 (0.93-1.08) 12/27/16 10:10 APTT 25.2 Seconds (23.7-30.8) 12/27/16 10:10
--- NOTE | 2016-12-29 13:07 | CP.PCM.PCO ---
Assessment & Plan - Assessment and Plan (Free Text) Assessment: NEURO COMMUNICATION NOTE: PATIENT HAS CERVICAL AND LUMBOSACRAL RADICULOPATHY. NEURO-SURGERY NOTE REVIEWED AND APPRECIATED. PATIENT DEFERS SURGERY TO OUTPATIENT. RECOMMEND: TAPER DOSE OF STEROIDS OR MEDROL DOSE PACK. C/W GABAPENTIN 600MG PO QHS AND 300MG PO QAM. PT/OT OUTPATIENT. F/U WITH NEUROSURGERY OUTPATIENT. THANK U, SIGN OFF. Lo HYLTON.
[2016-12-29 18:59] VITALS: BP 131/75; PULSE 64; TEMP 97.8
[2016-12-29] MEDS ORDERED: Dexamethasone 4 mg/1 ml IVP SCH (22:00)
--- NOTE | 2016-12-31 10:27 | CP.PCM.DIS ---
<Sander Christiansen - Last Filed: 12/31/16 10:36> Provider - Provider Date of Admission: 12/27/16 12:15 Attending physician: Bartolome Kirk MD Primary care physician: NO PRIMARY CARE PROVIDER Consults: Consults Neurology Sridevi Neurosurgery [facility] Time Spent in preparation of Discharge (in minutes): 45 Hospital Course - Lab Results Lab Results: Most Recent Lab Values WBC 10.7 10^3/ul (4.5-11.0) D 12/29/16 08:20 RBC 4.70 10^6/uL (3.5-6.1) 12/29/16 08:20 Hgb 13.8 gm/dL (14.0-18.0) L 12/29/16 08:20 Hct 40.6 % (42.0-52.0) L 12/29/16 08:20 MCV 86.4 fL (80.0-105.0) 12/29/16 08:20 MCH 29.4 pg (25.0-35.0) 12/29/16 08:20 MCHC 34.0 g/dl (31.0-37.0) 12/29/16 08:20 RDW 13.0 % (11.5-14.5) 12/29/16 08:20 Plt Count 189 10^3/uL (120.0-450.0) 12/29/16 08:20 MPV 10.0 fl (7.0-11.0) 12/29/16 08:20 Gran % 82.9 % (50.0-68.0) H 12/29/16 08:20 Lymph % (Auto) 13.2 % (22.0-35.0) L 12/29/16 08:20 [place] % (Auto) 3.9 % (1.0-6.0) 12/29/16 08:20 Eos % (Auto) 0.0 % (1.5-5.0) L 12/29/16 08:20 Baso % (Auto) 0.0 % (0.0-3.0) 12/29/16 08:20 Gran # 8.86 (1.4-6.5) H 12/29/16 08:20 Lymph # 1.4 (1.2-3.4) 12/29/16 08:20 [place] # 0.4 (0.1-0.6) 12/29/16 08:20 Eos # 0.0 (0.0-0.7) 12/29/16 08:20 Baso # 0.00 K/mm3 (0.0-2.0) 12/29/16 08:20 ESR 3 mm/hr (0.00-15.0) 12/28/16 07:11 PT 10.5 Seconds (9.9-11.8) 12/27/16 10:10 INR 0.97 (0.93-1.08) 12/27/16 10:10 APTT 25.2 Seconds (23.7-30.8) 12/27/16 10:10 Sodium 133 mmol/L (132-148) 12/29/16 08:20 Potassium 4.4 mmol/L (3.6-5.0) 12/29/16 08:20 Chloride 105 mmol/L (98-107) 12/29/16 08:20 Carbon Dioxide 21 mmol/L (21-33) 12/29/16 08:20 Anion Gap 11 (10-20) 12/29/16 08:20 BUN 23 mg/dL (7-21) H 12/29/16 08:20 Creatinine 0.8 mg/dL (0.5-1.4) 12/29/16 08:20 Est GFR ( Amer) > 60 12/29/16 08:20 Est GFR (Non-Af Amer) > 60 12/29/16 08:20 Random Glucose 120 mg/dL (70-110) H 12/29/16 08:20 Calcium 8.8 mg/dL (8.4-10.5) 12/29/16 08:20 Phosphorus 3.1 mg/dL (2.5-4.5) 12/29/16 08:20 Magnesium 2.1 mg/dL (1.7-2.2) 12/29/16 08:20 Total Bilirubin 0.4 mg/dL (0.2-1.3) 12/29/16 08:20 AST 16 U/L (15-59) 12/29/16 08:20 ALT 43 U/L (7-56) 12/29/16 08:20 Alkaline Phosphatase 33 U/L (38-133) L 12/29/16 08:20 Lactate Dehydrogenase 451 U/L (333-699) 12/27/16 10:10 Total Creatine Kinase 385 U/L (35-230) H 12/27/16 10:10 CK-MB (CK-2) 0.9 ng/mL (0.0-3.6) 12/27/16 10:10 CK-MB (CK-2) % Cancelled 12/27/16 10:10 Troponin I < 0.01 ng/mL 12/27/16 10:10 Total Protein 6.3 g/dL (5.8-8.3) 12/29/16 08:20 Albumin 3.9 g/dL (3.0-4.8) 12/29/16 08:20 Globulin 2.4 gm/dL 12/29/16 08:20 Albumin/Globulin Ratio 1.6 (1.1-1.8) 12/29/16 08:20 Urine Color Yellow (YELLOW) 12/27/16 10:14 Urine Appearance Clear (CLEAR) 12/27/16 10:14 Urine pH 6.0 (4.7-8.0) 12/27/16 10:14 Ur Specific [place] >= 1.030 (1.005-1.035) 12/27/16 10:14 Urine Protein Trace mg/dL (<30 mg/dL) H 12/27/16 10:14 Urine Glucose (UA) Negative mg/dL (NEGATIVE) 12/27/16 10:14 Urine Ketones Negative mg/dL (NEGATIVE) 12/27/16 10:14 Urine Blood Negative (NEGATIVE) 12/27/16 10:14 Urine Nitrate Negative (NEGATIVE) 12/27/16 10:14 Urine Bilirubin Negative (NEGATIVE) 12/27/16 10:14 Urine Urobilinogen 1.0 E.U./dL (<1 E.U./dL) H 12/27/16 10:14 Ur Leukocyte Esterase Negative Leydi/uL (NEGATIVE) 12/27/16 10:14 Urine RBC 0 - 2 /hpf (0-2) 12/27/16 10:14 Urine WBC 0 - 2 /hpf (0-6) 12/27/16 10:14 Ur Epithelial Cells 0 - 2 /hpf (0-5) 12/27/16 10:14 Urine Bacteria Few (NEG) 12/27/16 10:14 ELIU Screen Negative (Negative) 12/28/16 07:11 - Hospital Course Hospital Course: Attending: Dr. Kirk Admit date- 12/28 DC date- 12/29 Consults Neurology Sridevi Neurosurgery Ivette Discharge dx Cervical/lumbar radiculopathy Dermoid cyst Procedures- none No complications Stable for discharge. HPI: see h/p Labs: see lab data Hospital course Patient is a 51 year old male with past medical history of sciatica that presents to [facility] c/o low back pain. 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 He reported that he immediately had an acute decrease in the muscle strength of both of his legs. He felt as though his legs were giving out. He reported his low back pain has been persistent despite taking ibuprofen and exacerbates with movement. He reported that he was able to drive home but after no improvement with rest, he decided to come in for evaluation. Patient also reported cervical pain that has been present for the past 4 weeks. He stated that when he was lifting the heavy object he felt tingling in bilateral upper extremities. He denied saddle anesthesia, bowel/ bladder incontinence, trauma, chest pain, palpitations, SOB, abdominal pain, nausea, vomiting, fever, chills, cough. 1. Low back pain -Cervical MRI revealed right paracentral disc herniation at C6-C7 with encroachment upon the right ventral margin of the cord -Lumbar MRI revealed disk bulge with thecal sac indentation at L4-L5, grade 1 anterolisthesis with bilateral spondylolysis and bilateral inferior foraminal encroachment at L5-S1 -Thoracic MRI ordered>> shows disc herniation as well, please see full report -Gapanetin 600mg qHS, decadron 4mg q6h per neurology recommendations -Neurology consulted - Dr. Laureano -Neurosurgery consulted - Dr. Steele, workup in progress. -Neurochecks -Patient placed on remote telemetry for possibility of tachycardia secondary to decadron administration per neurology recommendations -will add dilaudid for pain -will f/u esr, eliu>>> ESR normal, eliu negative -will add lidocaine patch to lumbar spine 2.GI/DVT ppx -protonix daily -SCDs -will f/u with PT evaluation PT/OT rec as outpatient pt to be sent home with medrol dose pack and gabapentin will defer surgery for outpatient Discharge meds 1. gabapentin 600 mg po hs 2. gabapentin 300 mg po amhs 3. motrin 600 mg po q12 4. medrol dose pack 5. naproxen 50 mg po daily 6. percocet 5/325, number 15 7. protonix 40 mg po daily DC instructions Please return if condition worsens. Pt will need to f/u with neurosurgery for surgery as outpatient. Please take all meds as prescribed. Please f/u with primary care within one week. - Date & Time of H&P Date of H&P: 12/27/16 Time of H&P: 18:11 Discharge Exam - Head Exam Head Exam: ATRAUMATIC, NORMOCEPHALIC. absent: NORMAL INSPECTION Additional comments: Dermoid cyst - Eye Exam Eye Exam: EOMI - ENT Exam ENT Exam: Mucous Membranes Moist - Neck Exam Neck exam: Full Rom, Normal Inspection - Respiratory Exam Respiratory Exam: NORMAL BREATHING PATTERN, UNREMARKABLE - Cardiovascular Exam Cardiovascular Exam: +S1, +S2 - GI/Abdominal Exam GI & Abdominal Exam: Normal Bowel Sounds - Extremities Exam Extremities exam: full ROM, normal inspection - Neurological Exam Neurological exam: Alert, CN II-XII Intact, Oriented x3 - Psychiatric Exam Psychiatric exam: Normal Affect, Normal Mood - Skin Skin Exam: Dry, Intact, Normal Color, Warm Discharge Plan - Discharge Medications Prescriptions: Gabapentin 600 mg PO HS #30 tablet Gabapentin 300 mg PO AMHS #30 capsule Ibuprofen [Motrin] 600 mg PO Q12 #20 tab Methylprednisolone [Medrol Dose Pack (21 tabs)] 4 mg PO DAILY #21 mg oxyCODONE/Acetaminophen [Percocet 5/325 mg Tab] 1 ea PO Q4 #15 tab Pantoprazole Sodium [Protonix] 40 mg PO DAILY #10 ect - Follow Up Plan Condition: STABLE Disposition: HOME/ ROUTINE Instructions: Lumbar Disc Herniation (DC), Low Back Strain (DC), Cervical Disc Herniation (DC) Additional Instructions: If you experience any worsening of symptoms call your primary care physician and go to the nearest Emergency Room. 1. Follow up with [facility] clinic. Call to make appointment after completing [facility] paperwork. 2. Follow up with DR. Thornton neurosurgery. 3. Avoid lifting heavy objects. 4. Complete steroid course. Referrals: Gabo Thornton MD [Staff Provider] - PCP,NO [Primary Care Provider] - <Bartolome Kirk - Last Filed: 12/31/16 14:40> Provider - Provider Date of Admission: 12/27/16 12:15 Attending physician: Bartolome Kirk MD Primary care physician: TICO PRIMARY CARE PROVIDER Hospital Course - Lab Results Lab Results: Most Recent Lab Values WBC 10.7 10^3/ul (4.5-11.0) D 12/29/16 08:20 RBC 4.70 10^6/uL (3.5-6.1) 12/29/16 08:20 Hgb 13.8 gm/dL (14.0-18.0) L 12/29/16 08:20 Hct 40.6 % (42.0-52.0) L 12/29/16 08:20 MCV 86.4 fL (80.0-105.0) 12/29/16 08:20 MCH 29.4 pg (25.0-35.0) 12/29/16 08:20 MCHC 34.0 g/dl (31.0-37.0) 12/29/16 08:20 RDW 13.0 % (11.5-14.5) 12/29/16 08:20 Plt Count 189 10^3/uL (120.0-450.0) 12/29/16 08:20 MPV 10.0 fl (7.0-11.0) 12/29/16 08:20 Gran % 82.9 % (50.0-68.0) H 12/29/16 08:20 Lymph % (Auto) 13.2 % (22.0-35.0) L 12/29/16 08:20 [place] % (Auto) 3.9 % (1.0-6.0) 12/29/16 08:20 Eos % (Auto) 0.0 % (1.5-5.0) L 12/29/16 08:20 Baso % (Auto) 0.0 % (0.0-3.0) 12/29/16 08:20 Gran # 8.86 (1.4-6.5) H 12/29/16 08:20 Lymph # 1.4 (1.2-3.4) 12/29/16 08:20 [place] # 0.4 (0.1-0.6) 12/29/16 08:20 Eos # 0.0 (0.0-0.7) 12/29/16 08:20 Baso # 0.00 K/mm3 (0.0-2.0) 12/29/16 08:20 ESR 3 mm/hr (0.00-15.0) 12/28/16 07:11 PT 10.5 Seconds (9.9-11.8) 12/27/16 10:10 INR 0.97 (0.93-1.08) 12/27/16 10:10 APTT 25.2 Seconds (23.7-30.8) 12/27/16 10:10 Sodium 133 mmol/L (132-148) 12/29/16 08:20 Potassium 4.4 mmol/L (3.6-5.0) 12/29/16 08:20 Chloride 105 mmol/L (98-107) 12/29/16 08:20 Carbon Dioxide 21 mmol/L (21-33) 12/29/16 08:20 Anion Gap 11 (10-20) 12/29/16 08:20 BUN 23 mg/dL (7-21) H 12/29/16 08:20 Creatinine 0.8 mg/dL (0.5-1.4) 12/29/16 08:20 Est GFR ( Amer) > 60 12/29/16 08:20 Est GFR (Non-Af Amer) > 60 12/29/16 08:20 Random Glucose 120 mg/dL (70-110) H 12/29/16 08:20 Calcium 8.8 mg/dL (8.4-10.5) 12/29/16 08:20 Phosphorus 3.1 mg/dL (2.5-4.5) 12/29/16 08:20 Magnesium 2.1 mg/dL (1.7-2.2) 12/29/16 08:20 Total Bilirubin 0.4 mg/dL (0.2-1.3) 12/29/16 08:20 AST 16 U/L (15-59) 12/29/16 08:20 ALT 43 U/L (7-56) 12/29/16 08:20 Alkaline Phosphatase 33 U/L (38-133) L 12/29/16 08:20 Lactate Dehydrogenase 451 U/L (333-699) 12/27/16 10:10 Total Creatine Kinase 385 U/L (35-230) H 12/27/16 10:10 CK-MB (CK-2) 0.9 ng/mL (0.0-3.6) 12/27/16 10:10 CK-MB (CK-2) % Cancelled 12/27/16 10:10 Troponin I < 0.01 ng/mL 12/27/16 10:10 Total Protein 6.3 g/dL (5.8-8.3) 12/29/16 08:20 Albumin 3.9 g/dL (3.0-4.8) 12/29/16 08:20 Globulin 2.4 gm/dL 12/29/16 08:20 Albumin/Globulin Ratio 1.6 (1.1-1.8) 12/29/16 08:20 Urine Color Yellow (YELLOW) 12/27/16 10:14 Urine Appearance Clear (CLEAR) 12/27/16 10:14 Urine pH 6.0 (4.7-8.0) 12/27/16 10:14 Ur Specific [place] >= 1.030 (1.005-1.035) 12/27/16 10:14 Urine Protein Trace mg/dL (<30 mg/dL) H 12/27/16 10:14 Urine Glucose (UA) Negative mg/dL (NEGATIVE) 12/27/16 10:14 Urine Ketones Negative mg/dL (NEGATIVE) 12/27/16 10:14 Urine Blood Negative (NEGATIVE) 12/27/16 10:14 Urine Nitrate Negative (NEGATIVE) 12/27/16 10:14 Urine Bilirubin Negative (NEGATIVE) 12/27/16 10:14 Urine Urobilinogen 1.0 E.U./dL (<1 E.U./dL) H 12/27/16 10:14 Ur Leukocyte Esterase Negative Leydi/uL (NEGATIVE) 12/27/16 10:14 Urine RBC 0 - 2 /hpf (0-2) 12/27/16 10:14 Urine WBC 0 - 2 /hpf (0-6) 12/27/16 10:14 Ur Epithelial Cells 0 - 2 /hpf (0-5) 12/27/16 10:14 Urine Bacteria Few (NEG) 12/27/16 10:14 ELIU Screen Negative (Negative) 12/28/16 07:11 Attending/Attestation - Attestation I have personally seen and examined this patient.: Yes I have fully participated in the care of the patient.: Yes I have reviewed all pertinent clinical information, including history, physical exam and plan: Yes Notes (Text): 12/31/16 14:40 Attending note; Patient seen and examined with resident. Patient is a 51-year-old male admitted with back pain. Patient with significant cervical and lumbar radiculopathy. Neurosurgery evaluation appreciated. Patient refused Surgery for now. Physical therapy evaluation appreciated. Neurology evaluation with Dr. Laureano appreciated. Patient will be discharged home with Neurontin, Medrol Dosepak, Motrin and Percocet. Patient will complete [facility] paperwork. Patient will follow up with [facility] clinic. Patient will follow-up with neurosurgery Dr. Thornton. Diagnosis; Lumbar radiculopathy/disc herniation facet arthropathy History of back injury Cervical radiculopathy
== END 2016-12-29 20:56 | disposition home or self-care (01) ==
LOC: ED 08:47 → EROBSV 12:15 → ERH 14:25 → 5RSO 16:18 → 3RNO 18:59
PROVIDERS: ADMIT Hospitalist; ATTEND Internal Medicine
DX: M51.16 Intervertebral disc disorders with radiculopathy, lumbar region (principal); M50.123 Cervical disc disorder at C6-C7 level with radiculopathy; R53.1 Weakness; R20.9 Unspecified disturbances of skin sensation
CPT/HCPCS: 36415; 71010; 72131; 72141; 72146; 72148; 80053; 81001; 82550; 82553; 83615; 83735; 84100; 84484; 85025; 85610; 85651; 85730; 86039; 93005; 96374; 96375; 96376; 97161; 99285; C9113; G0378; G8978; G8979; G8980; J1100; J1170; J1885; J2270; J3360

== ENCOUNTER 2018-08-03 09:38 | Emergency (ER) | payer OTHER ==
[2018-08-03 09:48] VITALS: RESP 18; BMI 33.7
[2018-08-03] MEDS ORDERED: Oxycodone/Acetaminophen 5/325 mg Tab PO STA (09:57)
--- NOTE | 2018-08-03 09:57 | ED PDOC ---
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 Pt. stated that he has runny nose and cough x 3-4 days, associated with lower back pain x 1 week after heavy lifting, stated that he has chronic low back pain and the back pain characterist and severity/frequency is the same as usual, no fever or chills, no headache or night sweat, no chest pain or shortness of breath, no other medical or psychological complaints. Past Medical History - Provider Review Nursing Documentation Reviewed: Yes - Infectious Disease Hx of Infectious Diseases: None - Tetanus Immunization Tetanus Immunization: Unknown - Past Medical History Past Medical History: No Previous - Cardiac Hx Cardiac Disorders: Yes - Pulmonary Hx Respiratory Disorders: Yes Hx Pneumonia: Yes - Neurological Hx Neurological Disorder: No - HEENT Hx HEENT Disorder: Yes (TONSILLECTOMY) - Renal Hx Renal Disorder: No - Endocrine/Metabolic Hx Endocrine Disorders: No - Hematological/Oncological Hx Blood Disorders: No - Integumentary Hx Dermatological Disorder: No - Musculoskeletal/Rheumatological Hx Arthritis: Yes (HANDS) Other/Comment: sciatica - Gastrointestinal Hx Gastrointestinal Disorders: No - Genitourinary/Gynecological Hx Genitourinary Disorders: No - Psychiatric Hx Psychophysiologic Disorder: Yes (SMOKES CIGARETTES,DRINKS ALCOHOL SOCIALLY) Hx Substance Use: No - Past Surgical History Past Surgical History: No Previous - Surgical History Hx Tonsillectomy: Yes - Anesthesia Hx Anesthesia: Yes Hx Anesthesia Reactions: No Hx Malignant Hyperthermia: No - Suicidal Assessment Feels Threatened In Home Enviroment: No Family/Social History - Physician Review Nursing Documentation Reviewed: Yes Family/Social History: Unknown Family HX Smoking Status: Current Some Days Smoker Hx Alcohol Use: Yes (SOCIALLY) Hx Substance Use: No Hx Substance Use Treatment: No Allergies/Home Meds Allergies/Adverse Reactions: Allergies No Known Allergies Allergy (Verified 08/03/18 09:48) Review of Systems - Review of Systems Constitutional: absent: Fatigue, Fevers Eyes: absent: Vision Changes ENT: Rhinorrhea. absent: Hearing Changes Respiratory: Cough, Sputum. absent: SOB, Wheezing Cardiovascular: absent: Chest Pain Gastrointestinal: absent: Abdominal Pain, Diarrhea, Nausea, Vomiting Musculoskeletal: Back Pain. absent: Arthralgias, Neck Pain, Joint Swelling, Myalgias Skin: absent: Rash, Pruritis Neurological: absent: Headache, Dizziness Psychiatric: absent: Anxiety, Depression, Suicidal Ideation Physical Exam Vital Signs Reviewed: Yes Vital Signs Temp Pulse Resp BP Pulse Ox 08/03/18 09:43 97.2 F L 64 18 138/74 98 Temperature: Afebrile Blood Pressure: Normal Pulse: Regular Respiratory Rate: Normal Appearance: Positive for: Well-Appearing, Non-Toxic Pain Distress: Moderate Mental Status: Positive for: Alert and Oriented X 3 - Systems Exam Head: Present: Atraumatic, Normocephalic Pupils: Present: PERRL Extroacular Muscles: Present: EOMI Conjunctiva: Present: Normal Ears: Present: NORMAL TM, Normal Canal. No: Erythema Mouth: Present: Moist Mucous Membranes Pharnyx: Present: Normal. No: ERYTHEMA, EXUDATE, TONSILS ENLARGED Nose (External): Present: Atraumatic. No: Abrasion, Contusion, Laceration Nose (Internal): Present: Normal Inspection, No Active Bleeding, Rhinorrhea. No: Septal Deviation, Septal Hematoma, Epistaxis Neck: Present: Normal Range of Motion, Trachea Midline. No: Meningeal Signs, MIDLINE TENDERNESS, Paraspinal Tenderness, Lymphadenopathy Respiratory/Chest: Present: Clear to Auscultation, Good Air Exchange, Rhonchi (clear with coughing). No: Respiratory Distress, Accessory Muscle Use, Wheezes, Decreased Breath Sounds, Rales, Retracting, Tachypneic, Tender to Palpation Cardiovascular: Present: Regular Rate and Rhythm, Normal S1, S2. No: Murmurs Abdomen: No: Tenderness, Distention, Peritoneal Signs, Rebound, Guarding Back: Present: Normal Inspection, Other (LS spine: +ttp on the bilateral paraspinal region, no midline tenderness or step off, no rash, FROM without limitation, no saddling gait, sensation intact, motor 5/5, ). No: CVA Tende rness, Midline Tenderness, Pain with Leg Raise, Decubitus Ulcer Upper Extremity: Present: Normal Inspection, Normal ROM, NORMAL PULSES, Neurovascularly Intact, Capillary Refill < 2s. No: Cyanosis, Edema, Deformity Lower Extremity: Present: Normal Inspection, Normal ROM, Neurovascularly Intact, Capillary Refill < 2 s. No: Edema, NORMAL PULSES, Tenderness, Swelling, Deformity Neurological: Present: GCS=15, CN II-XII Intact, Speech Normal, Motor Func Grossly Intact, Gait Normal, Memory Normal Skin: Present: Warm, Dry, Normal Color. No: Rashes Psychiatric: Present: Alert, Oriented x 3, Normal Insight, Normal Concentration Medical Decision Making ED Course and Treatment: 08/03/18 10:04 -xrays -Toradol/decadron/percocet -Observe and reassess 08/03/18 12:36 -Chest xray: No active pulmonary disease. -LS spine xray: Bilateral spondylolysis at L5 with grade 1 anterior listhesis of L5 on S1. Moderate degenerative disc disease at L5-S1. -Pt. feels much better, walking around with normal gait and posture, discussed radiology results with him and he would need orthopedic neurosurgery and physical therapist plus PMD follow up as these are chronic findings. Pt. is awared these can causes permanent damage and neurological deficits if left untreated chronically. -Discharge home with cane, duexis, flexeril, bromfed dm, bed rest, avoid working and please follow up with your own pmd/neurosurgeon/orthopedic and Physical therapist within 2 days, return to the ER for any new or worsening signs or symptoms. - RAD Interpretation Radiology Orders: -Chest xray: Date of service: 08/03/2018 HISTORY: Cough for 3-4 days COMPARISON: 12/27/2016. TECHNIQUE: Chest PA and lateral FINDINGS: LINES AND TUBES: None. LUNG AND PLEURA: The lungs are well inflated and clear. No pleural effusion or pneumothorax. HEART AND MEDIASTINUM: The heart is not enlarged. No aortic atherosclerotic calcifications present. The hilar and mediastinal contours are within normal limits. SKELETAL STRUCTURES: The bony structures are within normal limits for the patient's age. VISUALIZED UPPER ABDOMEN: Normal. OTHER FINDINGS: There is chronic elevation of the left hemidiaphragm. IMPRESSION: No active pulmonary disease. -LS spine xray: Date of service: 08/03/2018 PROCEDURE: Radiographs of the Lumbar Spine. HISTORY: Lower back pain x 1 week COMPARISON: No prior. FINDINGS: BONES: There is bilateral spondylolysis at L5 with grade 1 anterior listhesis of L5 on S1. There is normal lumbar lordosis. There is no acute fracture. Bone mineralization is normal. DISC SPACES: There is moderate degenerative disc disease at L5-S1 with anterior osteophytes, reduced disc height and facet arthropathy. OTHER FINDINGS: There are no pathologic soft tissue calcifications. There is mild degenerative osteoarthrosis in the sacroiliac joints. IMPRESSION: Bilateral spondylolysis at L5 with grade 1 anterior listhesis of L5 on S1. Moderate degenerative disc disease at L5-S1. 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 Disposition/Present on Arrival - Present on Arrival Any Indicators Present on Arrival: No History of DVT/PE: No History of Uncontrolled Diabetes: No Urinary Catheter: No History of Decub. Ulcer: No History Surgical Site Infection Following: None - Disposition Have Diagnosis and Disposition been Completed?: Yes Diagnosis: Chronic back pain, URI (upper respiratory infection), Anterolisthesis, Spondylolysis Disposition: HOME/ ROUTINE Disposition Time: 12:44 Patient Plan: Discharge Condition: IMPROVED Additional Instructions: -Discharge home with cane, duexis, flexeril, bromfed dm, bed rest, avoid working and please follow up with your own pmd/neurosurgeon/orthopedic and Physical therapist within 2 days, return to the ER for any new or worsening signs or sym ptoms. Prescriptions: Brompheniramine/Pseudoephed/Dm [Bromfed Dm Cough 118 ml] 10 ml PO QID PRN #250 ml PRN Reason: Other Cyclobenzaprine [Cyclobenzaprine HCl] 10 mg PO TID PRN #21 tab PRN Reason: Other Ibuprofen/Famotidine [Duexis 26.6 mg-800 mg] 1 tab PO TID PRN #21 tab PRN Reason: Other Referrals: FAMILY PROVIDER,NO [Primary Care Provider] - Follow up with primary [facility] [Outside] - Follow up with primary Tristian Steele MD [Staff Provider] - Follow up with primary Cary Acosta MD [Staff Provider] - Follow up with primary Forms: [employer] ([place]), WORK NOTE
--- NOTE | 2018-08-03 12:29 | RAD ---
Date of service: 08/03/2018 HISTORY: Cough for 3-4 days COMPARISON: 12/27/2016. TECHNIQUE: Chest PA and lateral FINDINGS: LINES AND TUBES: None. LUNG AND PLEURA: The lungs are well inflated and clear. No pleural effusion or pneumothorax. HEART AND MEDIASTINUM: The heart is not enlarged. No aortic atherosclerotic calcifications present. The hilar and mediastinal contours are within normal limits. SKELETAL STRUCTURES: The bony structures are within normal limits for the patient's age. VISUALIZED UPPER ABDOMEN: Normal. OTHER FINDINGS: There is chronic elevation of the left hemidiaphragm. IMPRESSION: No active pulmonary disease.
--- NOTE | 2018-08-03 12:36 | RAD ---
Date of service: 08/03/2018 PROCEDURE: Radiographs of the Lumbar Spine. HISTORY: Lower back pain x 1 week COMPARISON: No prior. FINDINGS: BONES: There is bilateral spondylolysis at L5 with grade 1 anterior listhesis of L5 on S1. There is normal lumbar lordosis. There is no acute fracture. Bone mineralization is normal. DISC SPACES: There is moderate degenerative disc disease at L5-S1 with anterior osteophytes, reduced disc height and facet arthropathy. OTHER FINDINGS: There are no pathologic soft tissue calcifications. There is mild degenerative osteoarthrosis in the sacroiliac joints. IMPRESSION: Bilateral spondylolysis at L5 with grade 1 anterior listhesis of L5 on S1. Moderate degenerative disc disease at L5-S1.
[2018-08-03 12:40] VITALS: BP 112/71; PULSE 66; TEMP 98.1; O2SAT 99
== END 2018-08-03 13:01 | disposition home or self-care (01) ==
LOC: ED 09:38
DX: J06.9 Acute upper respiratory infection, unspecified (principal); G89.29 Other chronic pain; M54.5 Low back pain; M43.06 Spondylolysis, lumbar region
CPT/HCPCS: 71046; 72110; 96372; 99284; J1100; J1885

== ENCOUNTER 2018-09-22 20:07 | Emergency (ER) | payer SELFPAY ==
[2018-09-22 20:07] VITALS: BMI 33.7
[2018-09-22 20:48] VITALS: TEMP 98.1
[2018-09-22] MEDS ORDERED: Ophthalmic Irrigation, Soln OD STA (22:16)
[2018-09-22] MEDS ORDERED: Tobramycin 0.3% OPH OINT OD STA (23:11)
[2018-09-22] MEDS ORDERED: Tobramycin 0.3% OPHT SOLN OD STA (23:15)
--- NOTE | 2018-09-22 23:16 | ED PDOC ---
Arrival/HPI - General Chief Complaint: Eye Problem Time Seen by Provider: 09/22/18 20:57 Historian: Patient - History of Present Illness Narrative History of Present Illness (Text): 09/22/18 23:50 53-year-old male presents today with foreign body sensation in the right eye. Patient states this afternoon he was changing a light fixture and a small particles went into the eye. Patient states since then he's been having a burning sensation to the right eye with blurred vision. Patient denies headaches dizziness or weakness. Patient states he washed the eye out initially but still feels a sharp pain every time he closes his eye. Patient is unsure what is inside the eye. He states his tetanus is up-to-date. No other complaints Past Medical History - Provider Review Nursing Documentation Reviewed: Yes - Travel History Have you recently traveled outside [place] w/in the past 3 mons?: No - Infectious Disease Hx of Infectious Diseases: None - Tetanus Immunization Tetanus Immunization: Up to Date - Past Medical History Past Medical History: No Previous - Cardiac Hx Cardiac Disorders: No - Pulmonary Hx Respiratory Disorders: Yes Hx Pneumonia: Yes - Neurological Hx Neurological Disorder: No - HEENT Hx HEENT Disorder: Yes (TONSILLECTOMY) - Renal Hx Renal Disorder: No - Endocrine/Metabolic Hx Endocrine Disorders: No - Hematological/Oncological Hx Blood Disorders: No - Integumentary Hx Dermatological Disorder: No - Musculoskeletal/Rheumatological Hx Musculoskeletal Disorders: Yes Hx Arthritis: Yes (HANDS) Other/Comment: sciatica - Gastrointestinal Hx Gastrointestinal Disorders: No - Genitourinary/Gynecological Hx Genitourinary Disorders: No - Psychiatric Hx Psychophysiologic Disorder: No Hx Substance Use: No - Past Surgical History Past Surgical History: No Previous - Surgical History Hx Tonsillectomy: Yes - Anesthesia Hx Anesthesia: Yes Hx Anesthesia Reactions: No Hx Malignant Hyperthermia: No - Suicidal Assessment Feels Threatened In Home Enviroment: No Family/Social History - Physician Review Nursing Documentation Reviewed: Yes Family/Social History: Unknown Family HX Smoking Status: Current Some Days Smoker Hx Alcohol Use: Yes (SOCIALLY) Hx Substance Use: No Hx Substance Use Treatment: No Allergies/Home Meds Allergies/Adverse Reactions: Allergies No Known Allergies Allergy (Verified 09/22/18 20:44) Review of Systems - Review of Systems Constitutional: absent: Fatigue, Fevers Eyes: Vision Changes, Photophobia, Eye Pain ENT: absent: Sore Throat, Sinus Congestion Respiratory: absent: SOB, Cough Cardiovascular: absent: Chest Pain, Palpitations Gastrointestinal: absent: Abdominal Pain, Nausea, Vomiting Musculoskeletal: absent: Arthralgias, Back Pain, Neck Pain Skin: absent: Rash Neurological: absent: Headache Psychiatric: absent: Anxiety, Depression Physical Exam Vital Signs Reviewed: Yes Vital Signs Temp Pulse Resp BP Pulse Ox 09/22/18 20:44 98.1 F 75 16 112/69 98 Temperature: Afebrile Blood Pressure: Normal Pulse: Regular Respiratory Rate: Normal Appearance: Positive for: Well-Appearing, Non-Toxic, Comfortable Pain Distress: None Mental Status: Positive for: Alert and Oriented X 3 - Systems Exam Head: Present: Atraumatic. No: Swelling Pupils: Present: PERRL Extroacular Muscles: Present: EOMI Conjunctiva: Present: Injected (right conjunctival injection; + corneal abrasion noted to central cornea; + 1mm FB noted to lateral cornea; multiple floating small 1mm sized FBs noted. ) Mouth: Present: Moist Mucous Membranes Nose (External): Present: Atraumatic Neck: Present: Normal Range of Motion Respiratory/Chest: Present: Clear to Auscultation Cardiovascular: Present: Regular Rate and Rhythm Neurological: Present: GCS=15 Skin: Present: Warm, Dry, Normal Color Psychiatric: Present: Alert, Oriented x 3 Medical Decision Making ED Course and Treatment: 09/22/18 23:47 Patient is nontoxic well appearing in no distress. Visual acuity 20/20 left, 20/70 right eye. right eye; flushed with eyewash. right eye; +Conjunctival injection noted, + small corneal abrasions noted. + multiple floating fbs, 1 pinpoint brown fb noted to lateral aspect of cornea. PERRLA, extraocular muscles intact case discussed with dr. Cruz in depth; he advised tobramycin antibiotics and follow-up tomorrow morning at 10 AM in the office. All results discussed with the patient in depth. Plan discussed with the patient in depth. He was advised to follow-up with the eye doctor tomorrow morning at 10 AM. Patient verbalizes understanding of discharge instructions and need for immediate followup. all aspects of this case were discussed the attending of record. Impression: corneal abrasion, foreign body,eye Tobrex: 2 drops in the affected eye 4 times daily Followup with the eye doctor tomorrow at 10am in the office. Return immediately if symptoms worsen persist or if new symptoms develop; blurry vision, worsening eye pain, worsening redness or any other concerning symptoms develop. Follow up with the primary care physician within the next 2 days Reassessment Condition: Re-examined, Improved - Medication Orders Current Medication Orders: Discontinued Medications Eye Irrigation Solution (Eye Wash) 15 ml OD STAT STA Stop: 09/22/18 22:17 Last Admin: 09/22/18 23:00 Dose: 15 ml Comments: administered by ED Gould Disposition/Present on Arrival - Present on Arrival Any Indicators Present on Arrival: No History of DVT/PE: No History of Uncontrolled Diabetes: No Urinary Catheter: No History of Decub. Ulcer: No History Surgical Site Infection Following: None - Disposition Have Diagnosis and Disposition been Completed?: Yes Diagnosis: Foreign body, eye, Corneal abrasion Disposition: HOME/ ROUTINE Disposition Time: 23:12 Patient Plan: Discharge Patient Problems: Current Active Problems Problem Status Onset Corneal abrasion Acute Foreign body, eye Acute Condition: GOOD Discharge Instructions (ExitCare): Foreign Body in Eye, Corneal Abrasion (DC) Additional Instructions: Tobrex: 2 drops in the affected eye 4 times daily Followup with the eye doctor tomorrow at 10am in the office. Return immediately if symptoms worsen persist or if new symptoms develop; blurry vision, worsening eye pain, worsening redness or any other concerning symptoms develop. Follow up with the primary care physician within the next 2 days Prescriptions: Ibuprofen [Motrin] 600 mg PO Q6H PRN #20 tab PRN Reason: pain/fever reduction Tobramycin 0.3% [Tobramycin 5 Ml] 2 drop OD QID #1 bottle Referrals: Melo Cruz MD [Staff Provider] - Follow up with primary [facility] [Outside] - Follow up with primary Francine Goodwin MD [Medical Doctor] - Follow up with primary Forms: [employer] ([place]), WORK NOTE
[2018-09-23 00:09] VITALS: BP 115/71; PULSE 82; RESP 18; O2SAT 99
== END 2018-09-23 00:08 | disposition home or self-care (01) ==
LOC: ED 20:07
DX: T15.01XA Foreign body in cornea, right eye, initial encounter (principal); X58.XXXA Exposure to other specified factors, initial encounter
CPT/HCPCS: 96372; 99283; J1885